=== PATIENT | female | born 1960 | race Hispanic/Latino ===

== ENCOUNTER → 2019-03-25 | Outpatient (CLI) | payer BC, OTHER ==
--- NOTE | 2019-03-25 14:42 | Diagnostic Imaging Report ---
MRI SPINE CERVICAL WO HISTORY: Neck pain, left shoulder pain COMPARISON: None. TECHNIQUE: Sagittal T1, sagittal T2, sagittal inversion recovery, axial T2 and axial T1 weighted MR images of the cervical spine were obtained without intravenous contrast. DISCUSSION: Alignment: Normal lordosis. No scoliosis. Vertebrae: No definite evidence for fractures, infection, or neoplasm. Cervicomedullary junction: No abnormalities. Spinal cord: Normal in signal and morphology from the foramen magnum through T5-T6. Soft tissues: No signal abnormalities. Mild multilevel disc degeneration is most prominent at C5-C6. C2-C3: Patent canal and foramina. C3-C4: Patent canal and foramina. C4-C5: Patent canal and foramina. C5-C6: Mild canal stenosis due to posterior disc osteophyte complex and ligamentum flavum thickening. Mild bilateral foraminal stenoses due to uncovertebral and facet arthrosis. C6-C7: Moderate left foraminal stenosis due to uncovertebral and facet arthrosis. No significant canal or right foraminal stenosis. C7-T1: Patent canal and foramina. IMPRESSION: 1. Mild multilevel disc degeneration, most prominent at C5-C6. 2. Moderate left C6-C7 degenerative foraminal stenosis. 3. Mild degenerative canal stenosis at C5-C6. Signed by: Dr. Piyush Garcia M.D. on 03/25/2019 2:39 PM
--- NOTE | 2019-03-25 14:45 | Diagnostic Imaging Report ---
MRI BRAIN WO HISTORY: Headache COMPARISON: None. TECHNIQUE: Sagittal T2, axial T2, axial T1, axial T2/FLAIR, axial gradient echo (or susceptibility weighted), coronal T2/FLAIR, and axial diffusion weighted MR images of the brain were obtained without contrast. Motion artifacts obscure some details. DISCUSSION: Scalp/bone marrow: Unremarkable. Brain sulci: Appropriate for patient's age. Ventricles: Normal in size and configuration. No hydrocephalus. Extra-axial spaces: No masses or fluid collections. Parenchyma: A few small T2/FLAIR hyperintense foci throughout the supratentorial white matter are likely chronic microvascular ischemic changes. Otherwise, no mass, hemorrhage, or acute vascular insults. Vessels: Normal flow voids in major arteries and veins. Sellar/Suprasellar region: No abnormalities. Craniocervical junction: No abnormalities. Incidental findings: None. IMPRESSION: 1. No acute intracranial abnormalities. 2. Minimal supratentorial chronic microvascular ischemic change. Signed by: Dr. Piyush Garcia M.D. on 03/25/2019 2:42 PM
== END ==
LOC: MRI 07:39
PROVIDERS: ATTEND Specialist
DX: R51 Headache (principal); M54.2 Cervicalgia
CPT/HCPCS: 70551; 72141

== ENCOUNTER → 2019-04-10 | Outpatient (CLI) | payer BC, OTHER ==
--- NOTE | 2019-04-10 16:30 | Diagnostic Imaging Report ---
Bone density study Clinical History: Menopause Bone mineral density measurement Lumbar spine 0.640 gm/cm2 Femoral neck 0.637 gm/cm2 Standard deviation from young adult population (T-score) Lumbar spine -3.7 Femoral neck -1.9 Standard deviation for age adjusted population (Z-score) Lumbar spine -2.4 Femoral neck -0.7 Comments: The alignment of lumbar spine and femoral necks are satisfactory. 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 Complete computer analysis will be sent shortly. Diagnostic criteria for osteoporosis BMD: Bone mineral density Normal: BMD measurement less than one standard deviation from young adult population Osteopenia: BMD measurement between 1 and 2.5 standard deviations Osteoporosis: BMD measurement greater than 2.5 standard deviations Severe osteoporosis: Osteoporosis and one or more fragility fractures Signed by: Dr. Rolando Raphael MD on 04/10/2019 4:26 PM
--- NOTE | 2019-04-23 09:13 | Diagnostic Imaging Report ---
#[id number] - MGSCRBIL #BILATERAL DIGITAL SCREENING MAMMOGRAM WITH CAD: 04/10/2019 CLINICAL: Routine screening. No prior exams were available for comparison. Current study contains 8 films. There are scattered fibroglandular elements in both breasts. Current study was also evaluated with a Computer Aided Detection (CAD) system. Bilateral retropectoral breast implants are intact. Benign calcification is present in the left breast. No significant masses, calcifications, or other findings are seen in either breast. IMPRESSION: BENIGN There is no mammographic evidence of malignancy. A 1 year screening mammogram is recommended. The patient will be notified by letter of the results. ALEISHA FERRO M.D. ct/penrad:04/22/2019 16:29:38 [place] Aide: Krystle OLIVER)(Chhaya), [facility] letter sent: Normal Exam Mammogram BI-RADS: 2 Benign
== END ==
LOC: MAMMO 08:23
PROVIDERS: ATTEND Specialist
DX: Z12.31 Encounter for screening mammogram for malignant neoplasm of breast (principal); Z78.0 Asymptomatic menopausal state
CPT/HCPCS: 77067; 77080

== ENCOUNTER 2020-09-12 05:38 | Observation (INO) | payer BC, OTHER ==
[~2020-09-12] VITALS: Ht 165.1 cm; Wt 53.5 kg
[2020-09-12] MEDS ORDERED: SODIUM CHLORIDE 0.9% 1000ML 1,000 ML IV STA (06:02)
[2020-09-12] MEDS ORDERED: ONDANSETRON HCL INJ 2MG/ML 2ML 2 MG/ML VIAL IV STA (06:02)
[2020-09-12 06:44] LABS: BASOPHILS % 0.5 % (0.0-1.0); EOSINOPHILS # (AUTO) 0.1 (0.0-0.4); EOSINOPHILS % 1.8 % (0.0-6.0); HEMATOCRIT 37.1 % (34.2-44.1); HEMOGLOBIN 12.4 g/dL (12.0-16.0); LYMPHOCYTES # (AUTO) 2.6 (1.0-3.2); LYMPHOCYTES % 41.3 % (18.0-39.1); MEAN CORPUSCULAR HEMOGLOBIN 31.4 pg (28-32); MEAN CORPUSCULAR HGB CONC 33.4 g/dL (31-35); MEAN CORPUSCULAR VOLUME 93.9 fL (81-99); MONOCYTES # (AUTO) 0.4 (0.2-0.8); MONOCYTES % 6.6 % (4.4-11.3); NEUTROPHILS % 49.2 % (38.7-80.0); PLATELET COUNT 259 x10e3/uL (140-360); RED BLOOD COUNT 3.95 x10e6/uL (3.6-5.1); RED CELL DISTRIBUTION WIDTH 12.3 % (11.7-14.4)
[2020-09-12 06:51] LABS: AMPHETAMINES SCREEN,URINE NEGATIVE (NEGATIVE); BENZODIAZEPINES SCREEN,URINE NEGATIVE (NEGATIVE); PHENCYCLIDINE SCREEN,URINE NEGATIVE (NEGATIVE)
[2020-09-12 06:56] LABS: COLOR,URINE YELLOW (YELLOW)
[2020-09-12 06:57] LABS: CLARITY,URINE SL CLOUDY (CLEAR); KETONES,URINE NEGATIVE (NEGATIVE); LEUKOCYTE ESTERASE ,URINE TRACE (NEGATIVE); NITRITE,URINE NEGATIVE (NEGATIVE); PROTEIN,URINE DIPSTICK NEGATIVE (NEGATIVE); URINE UROBILINOGEN 0.2 mg/dL (0.2 - 1)
[2020-09-12 06:57] LABS: INR 0.91; PARTIAL THROMBOPLASTIN TIME 29.2 seconds (23.8-35.5); PROTHROMBIN TIME 12.8 seconds (11.9-14.5)
[2020-09-12 07:04] LABS: ALANINE AMINOTRANSFERASE 15 IU/L (0-55); ALBUMIN 4.1 g/dL (3.5-5.0); ALBUMIN/GLOBULIN RATIO 1.7 (0.8-2.0); ALKALINE PHOSPHATASE 53 IU/L (40-150); ANION GAP 11.5 mmol/L (8-16); BLOOD UREA NITROGEN 11 mg/dL (7-26); BUN/CREATININE RATIO 12 (6-25); CALCIUM 8.6 mg/dL (8.4-10.2); CARBON DIOXIDE 24 mmol/L (22-29); CHLORIDE 104 mmol/L (98-107); CREATINE KINASE 133 IU/L (29-168); CREATININE, SERUM 0.94 mg/dL (0.57-1.11); EST GLOMERULAR FILTRATION RATE > 60 ML/MIN (60-); GLUCOSE 102 mg/dL (74-118); MAGNESIUM 1.8 MG/DL (1.3-2.1); POTASSIUM 3.5 mmol/L (3.5-5.1); SODIUM 136 mmol/L (136-145)
[2020-09-12 07:05] LABS: AMORPHOUS SEDIMENT,URINE FEW (FEW); BACTERIA,URINE FEW /HPF; RBC,URINE 0-5 /HPF (0-5); WBC,URINE (MAN) 0-5 /HPF (0-5)
[2020-09-12] MEDS ORDERED: KETOROLAC TROMETHAMINE 30 MG/ML VIAL IV STA (07:15)
[2020-09-12] MEDS ORDERED: ONDANSETRON HCL INJ 2MG/ML 2ML 2 MG/ML VIAL IV PRN (08:45)
[2020-09-12] MEDS ORDERED: HYDROCODONE/APAP 7.5MG-325MG 1 EA TAB PO PRN (08:45)
[2020-09-12] MEDS ORDERED: SODIUM CHLORIDE 0.9% 1000ML 1,000 ML IV SCH (09:00)
[2020-09-12] MEDS ORDERED: NICOTINE 14 MG/EA PATCH TOP SCH (09:00)
[2020-09-12 10:58] LABS: CHOL/HDL RATIO 2.9 (3.0-3.6)
[2020-09-12 11:18] LABS: THYROID STIMULATING HORMONE 2.792 uIU/mL (0.350-4.940)
[2020-09-12 15:51] LABS: CREATINE KINASE MB 9.9 ng/mL (0-5.0)
== END 2020-09-12 21:08 | disposition home or self-care (01) ==
LOC: ER 05:47 → ERHOLD 08:38
PROVIDERS: ADMIT Internal Medicine; ATTEND Internal Medicine
DX: R55 Syncope and collapse (principal); M81.0 Age-related osteoporosis without current pathological fracture; F17.210 Nicotine dependence, cigarettes, uncomplicated; W18.39XA Other fall on same level, initial encounter; Y92.003 Bedroom of unspecified non-institutional (private) residence as the place of occurrence of the external cause; Z20.822 Contact with and (suspected) exposure to COVID-19
CPT/HCPCS: 36415; 70450; 70551; 71045; 72125; 80053; 80061; 80307; 80320; 81001; 82550; 82553; 83735; 84443; 84484; 85025; 85610; 85730; 87086; 93005; 93306; 93880; 99284; G0378; J1885; J2405; J7030; U0002

== ENCOUNTER → 2023-02-09 | Day surgery (SDC) | payer BC, OTHER ==
[~2023-02-09] MED LIST: CALCIUM PO; GLUCAGON FOR INJ 1 MG VIAL ONE; GLYCOPYRROLATE INJ 0.2 MG/ML VIAL ONE; LACTATED RINGER'S 1,000 ML ONE; LIDOCAINE HCL 2% LOCAL INJ 5 ML SDV VIAL INJ ONE; METOCLOPRAMIDE HCL 10 MG/2ML VIAL ONE; MIDAZOLAM HCL 2 MG/2 ML VIAL ONE; MULTI-VITAMIN1 EACH PO; POVIDONE IODINE 0.05% 0.05 % ML PO ONE; PROPOFOL IV EMULSION 10 MG/ML 20 ML VIAL ONE; VITAMIN K240 MCG PO
[2023-02-09 17:45] VITALS: BP 113/66; PULSE 83; RESP 16; O2SAT 98
== END | disposition home or self-care (01) ==
LOC: OR 15:26
PROVIDERS: ATTEND Internal Medicine Gastroenterology
DX: K29.50 Unspecified chronic gastritis without bleeding (principal); K63.5 Polyp of colon; K62.1 Rectal polyp; K29.60 Other gastritis without bleeding; K21.9 Gastro-esophageal reflux disease without esophagitis; K20.90 Esophagitis, unspecified without bleeding; K22.89 Other specified disease of esophagus; K57.30 Diverticulosis of large intestine without perforation or abscess without bleeding; K64.8 Other hemorrhoids; R42 Dizziness and giddiness; F17.210 Nicotine dependence, cigarettes, uncomplicated; Z88.0 Allergy status to penicillin; Z01.810 Encounter for preprocedural cardiovascular examination
CPT/HCPCS: 36415; 43239; 45380; 45385; 82948; 93005; C9113; J1610; J2001; J2250; J2704; J2765; J7121; 45378